=== PATIENT | female | born 1980 | race Caucasian/White ===

== ENCOUNTER 2025-02-20 12:35 | Emergency (ER) | payer BC, MEDICAID, SELFPAY ==
--- NOTE | ~2025-02-20 | CT_ITS ---
CLINICAL HISTORY: diffuse abd pain CT abdomen and pelvis with contrast Comparison: None provided Findings: The lung bases are clear. Fat containing umbilical hernia. Distended gallbladder. No hydronephrosis. No bowel obstruction, pneumoperitoneum, or pneumatosis. Left ovarian cysts measuring 2.3 cm. Bilateral pelvic varices can be seen with pelvic congestion syndrome. Retroverted uterus. Scattered colonic diverticulosis without diverticulitis or colitis. The bones are intact. IMPRESSION: No acute findings. This document has been electronically signed by: Solis Raymond MD on 02/20/2025 18:44:11
[2025-02-20 12:47] VITALS: BP 113/54; PULSE 51; RESP 18; TEMP 36.3; O2SAT 98; BMI 24.4
--- NOTE | 2025-02-20 12:47 | ED_ITS ---
HPI - General Adult General Chief complaint: Nausea/Vomiting/Diarrhea Stated complaint: Abd cramping, vomiting Time Seen by Provider: 02/20/25 14:21 Source: patient and family ( spouse) Mode of arrival: ambulatory Limitations: no limitations History of Present Illness ED Provider: DR. Swartz HPI narrative: this is a 44-year-old female otherwise healthy came in for evaluation of abdominal pain started about 6 hours ago while at work, pain described as constant cramps in the whole entire abdomen associated with loose stool bowel movement brown color, associated with nausea, vomiting, no dysuria, no frequency urination, patient started her menstrual cycle yesterday sometimes she gets menstrual cramps But her symptoms today is unusually severe than her menstrual cramps, no dysuria, no frequency urination, no fever, no other sick contacts, no recent travel, no recent use of antibiotic, no history of ingesting bad food or concern or food poisoning. no intra-abdominal surgical history, passing flatus is normal. Related Data Previous Rx's ?Medication ?Instructions ?Recorded doxycycline hyclate 100 mg tablet 100 mg PO BID #28 ta bs 05/03/20 Allergies Allergy/AdvReac Type Severity Reaction Status Date / Time sulfamethoxazole (From Allergy Intermediate RASH Verified 02/20/25 12:51 BACTRIM) trimethoprim (From BACTRIM) Allergy Intermediate RASH Verified 02/20/25 12:51 Review of Systems 2 Review of Systems: All other systems are reviewed and are negative Constitutional: Reports as per HPI and Reports no additional constitutional complaints Eyes: Reports as per HPI and Reports no additional eye complaints Reports system reviewed and no additional complaints, except as documented Cardiovascular: Reports as per HPI and Reports no additional cardiovascular complaints Respiratory: Reports as per HPI and Reports no additional respiratory complaints Gastrointestinal: Reports as per HPI and Reports no additional gastrointestinal complaints Genitourinary: Reports no additional female genitourinary complaints Musculoskeletal: Reports no additional musculoskeletal complaints Skin/Breast: Reports system reviewed and no additional complaints, except as docu Psychiatric: Reports no additional psychiatric complaints Endocrine: Reports no additional endocrine complaints Hematologic/Lymphatic: Reports no additional hematologic/lymphatic complaints Allergic/Immunologic: Reports no additional allergic/immunologic complaints Reports system reviewed and no additional complaints, except as documented and Reports Abnormal speech present PMFSH Social History Social History Smoked in Last 30 Days: No Use of substances other than those prescribed or required for medical reasons: Yes Substance Use Type: Marijuana Substance Use Frequency: Daily Last Used Substance: Days (ago) Advance Directives: No Advance Directives Information Provided: Yes Patient : No Physical Exam ED Vital Signs: Vital Signs - 24 hr 02/20/25 12:47 Temperature 97.4 F Pulse Rate 51 Respiratory Rate 18 Blood Pressure 113/54 L Pulse Oximetry 98 Oxygen Delivery Method Room Air BMI result Body Mass Index 24.4 Vital signs have been reviewed and appear to be correct. Blood pressure elevated. Heart rate normal. Respiratory rate normal. Temperature normal. Oxygen saturation normal. Appearance: Alert. Oriented X3. No acute distress. Head: Normal external exam. Normocephalic. Atraumatic. No [place] signs noted. No raccoon eyes noted Eyes: PERRLA. EOMI. Conjunctiva and sclera normal. Eyelids normal. ENT: TM's Normal. Pharynx normal. Uvula midline. Moist mucous membranes. No trismus noted. No drooling noted. No muffled voice noted. Neck: Normal inspection. Neck supple. FROM. No adenopathy. Thyroid Normal. No meningeal signs. No neck mass noted. CVS: Normal heart rate and rhythm. Heart sound normal. No murmurs noted. Pulses normal throughout. Respiratory: No respiratory distress. Painless inspiration. Breath sounds normal. No wheezes/rales/rhonchi noted. Chest nontender. No accessory muscle usage noted or decreased air movement noted. Abdomen: diffuse abdominal tenderness, no rebound tenderness, no guarding.Bowel sounds normal in all 4 quadrants. No distention noted. No organomegaly noted. No visible injury noted. Back: No CVA tenderness. Full range of motion noted. Skin: Skin warm and dry. Normal skin color. Normal skin turgor. No rashes/lesions/lacerations noted. Extremities: No lower extremity edema. Extremities exhibit normal range of motion. Extremities nontender. Neuro: Oriented X 3. Cranial nerve exam: II-XII are grossly intact No motor deficit. No sensory deficit. Reflexes normal. Course Course Course Narrative: This is an RME performed by Nabor Sanford CNP: Additional HPI, ROS, PE not included below will be deferred to primary provider. Patient is a female who presents emergency department for evaluation, reports Onset last night of menses and abdominal cramping, this morning had abrupt onset of nausea and persistent vomiting, diarrhea. Not able to tolerate oral intake. Endorsing chills but no fever. Plan: Serum labs, urinalysis Reevaluation(s) Reevaluation #1: 44-year-old female came in for diffuse abdominal pain, just started her menstruation yesterday, patient's symptoms can be mix of menstruation cramps and gastroenteritis. Patient feels better, able to tolerate p.o. intake, instructed to take ibuprofen for cramps, hydrate with oral fluids. Time: 19:09 Medications Administered Discontinued Medications Generic Name Dose Route Start Last Admin Trade Name Freq PRN Reason Stop Dose Admin Diazepam 2.5 mg 02/20/25 18:00 02/20/25 18:06 Diazepam 10 Mg/2 Ml Cartridge IVPUSH 02/20/25 18:01 2.5 mg STAT STA Administration Famotidine 20 mg 02/20/25 14:35 02/20/25 14:54 Famotidine/Pf 20 Mg/2 Ml Vial IVPUSH 02/20/25 14:36 20 mg ONCE ONE Administration Lactated Ringer's 1,000 mls @ 999 mls/hr 02/20/25 14:45 02/20/25 17:22 Lr IV 02/20/25 15:45 Infused .Q1H1M EYAD Infusion Iohexol 85 ml 02/20/25 18:17 02/20/25 18:22 Iohexol 350 Mg/Ml 100 Ml Infus..Btl IV 02/20/25 18:18 85 ml ONCE ONE Administration Ketorolac Tromethamine 15 mg 02/20/25 14:35 02/20/25 14:53 Ketorolac Tromethamine 15 Mg/Ml Vial IVPUSH 02/20/25 14:36 15 mg ONCE ONE Administration Metoclopramide HCl 10 mg 02/20/25 17:18 02/20/25 17:22 Metoclopramide Hcl 10 Mg/2 Ml Vial IVPUSH 02/20/25 17:19 10 mg ONCE ONE Administration Morphine Sulfate 1 mg 02/20/25 14:35 02/20/25 14:53 Morphine Sulfate 2 Mg/Ml Cartridge IVPUSH 02/20/25 14:36 1 mg ONCE ONE Administration Protocol Ondansetron HCl 4 mg 02/20/25 12:52 02/20/25 12:54 Ondansetron Odt 4 Mg Tab.Rapdis TRANSLINGU 02/20/25 12:53 4 mg ONCE ONE Administration Ondansetron HCl 4 mg 02/20/25 14:35 02/20/25 14:53 Ondansetron Hcl 4 Mg/2 Ml Vial IVPUSH 02/20/25 14:36 4 mg ONCE ONE Administration Medical Decision Making Differential Diagnosis Differential Diagnoses: The differential diagnosis associated with the presentation includes (Colitis, diverticulitis, acute cholecystitis, gastritis, gastroenteritis, PMS, UTI, .) Admission/Observation Consideration of admission/observation: Escalation of care including admission/observation considered Lab Data MDM Lab Attestation statement: I reviewed the patient's lab results. 02/20/25 13:09 02/20/25 13:09 Labs: Lab Results 02/20/25 02/20/25 Range/Units 13:09 13:18 WBC 12.9 H (4.8-10.8) X10*3/uL RBC 4.54 (4.20-5.50) X10*6/uL Hgb 13.5 (12.0-16.0) g/dl Hct 40.5 (37.0-47.0) % MCV 89.2 (80.0-98.0) fL MCH 29.7 (27.0-33.0) pg MCHC 33.3 (31.0-35.0) g/dl RDW 13.2 (11.0-16.0) % Plt Count 306 (160-400) X10*3/uL MPV 10.0 (9.4-12.3) fL Immature Gran % (Auto) 0.4 (0.0-0.4) % Neut % (Auto) 91.8 H (45-73) % Lymph % (Auto) 5.8 L (20-40) % [place] % (Auto) 1.6 L (2-11) % Eos % (Auto) 0.0 (0-4) % Baso % (Auto) 0.4 (0-2) % Lymph # (Auto) 0.8 L (1.2-4.9) X10*3/uL [place] # (Auto) 0.2 (0.1-1.2) X10*3/uL Eos # (Auto) 0.0 (0.0-0.4) X10*3/uL Baso # (Auto) 0.1 (0.0-0.2) X10*3/uL Abs Immat Gran (auto) 0.05 H (0.00-0.03) X10*3/uL Absolute Neuts (auto) 11.9 H (2.0-8.3) x10*3/uL Absolute Nucleated RBC 0.000 (0.0-0.012) X10*3/uL Nucleated RBC % (auto) 0.0 (0.0-0.2) /100WBC Smear Tech's Comments VERIFIED Sodium 143 (135-145) mmol/L Potassium 4.0 (3.3-5.1) mmol/L Chloride 112 H (96-108) mmol/L Carbon Dioxide 18 L (22-29) mmol/L Anion Gap 17 (12-20) BUN 8 L (9-16) mg/dL Creatinine 0.84 (0.5-1.4) mg/dL Estim Creat Clear Calc 74.5 Estimated GFR > 60 Random Glucose 150 H (60-115) mg/dL Calcium 9.6 (8.4-10.2) mg/dL Magnesium 2.0 (1.6-2.6) mg/dL Total Bilirubin 0.6 (0.0-1.0) mg/dL AST 24 (5-31) U/L ALT 22 (0-31) U/L Alkaline Phosphatase 61 (39-117) U/L Total Protein 8.1 H (6.5-8.0) g/dL Albumin 5.1 H (3.5-5.0) g/dL Lipase 13 (8-78) U/L Urine Color Dark Yellow Urine Appearance Cloudy Urine pH 5.5 (5.0-9.0) Ur Specific [place] >= 1.030 H (1.005-1.025) Urine Protein 30 (1+) H (Neg-Trace) mg/dL Urine Glucose (UA) Negative (Negative) mg/dL Urine Ketones 80 (Negative) mg/dL Urine Blood Large (3+) H (Negative) Urine Nitrite Negative (Negative) Ur Leukocyte Esterase Trace H (Negative) Urine RBC >20 H (0-2) /HPF Urine WBC 11-20 H (0-5) /HPF Ur Squamous Epith Cells 3-5 (0-2) /HPF Urine Bacteria Trace (None Seen) Hyaline Casts 3-5 (0-2) /LPF Urine Test NEGATIVE (NEGATIVE) Influenza Type A (PCR) NEGATIVE (Negative) Influenza Type B (PCR) NEGATIVE (Negative) RSV RNA Qual (PCR) NEGATIVE (Negative) SARS-CoV-2 RNA (RT-PCR) NEGATIVE (Negative) Independent Interpretation I performed an independent interpretation of an: CT Scan (Abdomen pelvis:The lung bases are clear. Fat containing umbilical hernia. Distended gallbladder. No hydronephrosis. No bowel obstruction, pneumoperitoneum, or pneumatosis. Left ovarian cysts measuring 2.3 cm. Bilateral pelvic varices can be seen with pelvic congestion syndrome. Retroverted uterus) Radiology Impression Discussion of test interpretation with radiology: I have reviewed the radiologist's reading. Discharge Plan Discharge Clinical Impression: Moderate cramps with menses, Gastroenteritis Patient Disposition: Home, Self-Care Instructions: Premenstrual Syndrome (ED), Gastroenteritis (ED) Additional Instructions: Drink plenty of fluids, take ibuprofen 200 mg orally every 6 hours if needed for pain. Prescriptions: No Action doxycycline hyclate 100 mg tablet 100 mg PO BID Qty: 28 0RF Stand Alone Forms: Work/School Release Print Language: Georgian
[2025-02-20 13:28] LABS: Hematocrit 40.5 % (37.0-47.0); Hemoglobin 13.5 g/dl (12.0-16.0); Imm Gran Abs Auto 0.05 X10*3/uL (0.00-0.03); Imm Gran Pct Auto 0.4 % (0.0-0.4); Lymphocytes Absolute Auto 0.8 X10*3/uL (1.2-4.9); MANUAL DIFF FLAG SCAN; Mean Corpuscular HGB Conc 33.3 g/dl (31.0-35.0); Mean Corpuscular Hemoglobin 29.7 pg (27.0-33.0); Mean Corpuscular Volume 89.2 fL (80.0-98.0); NRBC Abs Auto 0.000 X10*3/uL (0.0-0.012); NRBC Pct Auto 0.0 /100WBC (0.0-0.2); Platelet Count 306 X10*3/uL (160-400); Red Blood Count 4.54 X10*6/uL (4.20-5.50); SCAN SMEAR FLAG 1; White Blood Count 12.9 X10*3/uL (4.8-10.8)
[2025-02-20 13:29] LABS: UPreg QC Valid YES
[2025-02-20 13:31] LABS: Appearance Urine Cloudy; Glucose Urine UA Negative (Negative); PH 5.5 (5.0-9.0); Specific Gravity - Urine >= 1.030 (1.005-1.025); UMIC TRIGGER UACC YES
[2025-02-20 13:35] LABS: UACC Culture Trigger YES
[2025-02-20 13:40] LABS: Alanine Aminotransferase 22 U/L (0-31); Albumin Level 5.1 g/dL (3.5-5.0); Alkaline Phosphatase 61 U/L (39-117); Anion Gap 17 (12-20); Aspartate Amino Transferase 24 U/L (5-31); Blood Urea Nitrogen 8 mg/dL (9-16); Calcium 9.6 mg/dL (8.4-10.2); Carbon Dioxide 18 mmol/L (22-29); Chloride 112 mmol/L (96-108); Creatinine Clr Calc Pharmacy 74.5; Estimated Glomerular Filt Rate > 60; Lipase 13 U/L (8-78); Magnesium 2.0 mg/dL (1.6-2.6); Potassium 4.0 mmol/L (3.3-5.1); Sodium 143 mmol/L (135-145); Total Protein 8.1 g/dL (6.5-8.0)
[2025-02-20 14:42] LABS: Resp Syncy Virus RNA Qual PCR NEGATIVE (Negative); SARS COV2 PCR INHOUSE NEGATIVE (Negative)
[2025-02-20] MEDS: Lactated Ringers 1,000 ML 999 ML IV (14:53)
[2025-02-20] MEDS: diazePAM 10 MG/2 ML CARTRIDGE 2.5 MG IVPUSH (18:06)
--- NOTE | 2025-02-20 18:08 | PC.NURSE ---
Pt reports significant anxiety. ED provider made aware and new orders placed. Pt medicated per SEP.
[2025-02-20] MEDS: iohexoL 350 MG/ML 100 ML INFUS..BTL 85 ML IV (18:22)
[2025-02-20 19:36] VITALS: BP 91/54; PULSE 70; RESP 20; TEMP 36.8; O2SAT 97
[2025-02-20 20:01] VITALS: BP 91/54; PULSE 70; RESP 20; TEMP 36.8; O2SAT 97
== END 2025-02-20 20:01 | disposition home or self-care (01) ==
PROVIDERS: Nurse Practitioner Family; Emergency Provider Emergency Medicine
DX: N94.6 Dysmenorrhea, unspecified (principal); K52.9 Noninfective gastroenteritis and colitis, unspecified; R11.2 Nausea with vomiting, unspecified; Z03.818 Encounter for observation for suspected exposure to other biological agents ruled out; Z79.899 Other long term (current) drug therapy
CPT/HCPCS: 36415; 74177; 80053; 81001; 81025; 83690; 83735; 85025; 87086; 87637; 96361; 96374; 96375; 99284; 99285; J1308; J1885; J2270; J2405; J2765; J3360; J7120; Q9967

== ENCOUNTER → 2025-02-20 15:53 | Outpatient (BNV) | payer BC, MEDICAID, SELFPAY | PROVIDERS: Emergency Provider Emergency Medicine; Visit Provider Radiology Diagnostic Radiology | DX: N83.202 Unspecified ovarian cyst, left side (principal) | CPT/HCPCS: 74177 ==

== ENCOUNTER 2025-02-21 19:39 | Emergency (ER) | payer BC, MEDICAID, SELFPAY ==
[2025-02-21 19:50] VITALS: BP 108/71; BP 122/46; PULSE 22; PULSE 64; RESP 20; TEMP 36.7; O2SAT 98; BMI 25.2
[2025-02-21 20:06] VITALS: BP 111/68; PULSE 66; RESP 11; TEMP 36.6; O2SAT 96
[2025-02-21 20:55] LABS: MANUAL DIFF FLAG NO
[2025-02-21 20:56] LABS: Hematocrit 33.4 % (37.0-47.0); Hemoglobin 11.8 g/dl (12.0-16.0); Imm Gran Abs Auto 0.07 X10*3/uL (0.00-0.03); Imm Gran Pct Auto 0.5 % (0.0-0.4); Lymphocytes Absolute Auto 1.1 X10*3/uL (1.2-4.9); Mean Corpuscular HGB Conc 35.3 g/dl (31.0-35.0); Mean Corpuscular Hemoglobin 30.3 pg (27.0-33.0); Mean Corpuscular Volume 85.9 fL (80.0-98.0); NRBC Abs Auto 0.000 X10*3/uL (0.0-0.012); NRBC Pct Auto 0.0 /100WBC (0.0-0.2); Platelet Count 272 X10*3/uL (160-400); Red Blood Count 3.89 X10*6/uL (4.20-5.50); White Blood Count 14.8 X10*3/uL (4.8-10.8)
[2025-02-21 21:16] LABS: Alanine Aminotransferase 20 U/L (0-31); Albumin Level 4.6 g/dL (3.5-5.0); Alkaline Phosphatase 50 U/L (39-117); Anion Gap 18 (12-20); Aspartate Amino Transferase 25 U/L (5-31); Blood Urea Nitrogen 17 mg/dL (9-16); Calcium 9.1 mg/dL (8.4-10.2); Carbon Dioxide 18 mmol/L (22-29); Chloride 111 mmol/L (96-108); Creatinine Clr Calc Pharmacy 90.8; Estimated Glomerular Filt Rate > 60; Potassium 3.2 mmol/L (3.3-5.1); Sodium 144 mmol/L (135-145); Total Protein 7.0 g/dL (6.5-8.0)
[2025-02-21 22:34] VITALS: BP 133/70; PULSE 63; RESP 18; O2SAT 98
[2025-02-21 23:01] VITALS: TEMP 37.7
[2025-02-21] MEDS: Sucralfate Oral Suspension 1 GM/10 ML ORAL.SUSP PO (23:39)
[2025-02-22] MEDS: Potassium Chloride ER 20 MEQ TAB.ER.PRT 40 MEQ PO (02:11)
--- NOTE | 2025-02-22 03:07 | ED_ITS ---
HPI - General Adult General Chief complaint: Abdominal Pain Stated complaint: abd pain, N/V x36 hrs Time Seen by Provider: 02/21/25 22:36 Source: patient Limitations: no limitations History of Present Illness ED Provider: Radha Samson PA-C HPI narrative: 44-year-old female presents with abdominal pain and intractable nausea vomiting. Patient was seen earlier today, found to have viral gastroenteritis, her CT scan of the abdomen and pelvis was negative. She returns to the emergency department secondary to extreme dyspepsia and upper abdominal discomfort. She states she is having ?coffee-ground emesis with obvious blood in her vomit?. Denies fever. Related Data Previous Rx's ?Medication ?Instructions ?Recorded doxycycline hyclate 100 mg tablet 100 mg PO BID #28 ta bs 05/03/20 ondansetron 4 mg disintegrating 4 mg PO Q8-12H PRN enriqueta sea and 02/20/25 tablet vomiting #5 tabs dicyclomine 20 mg tablet 20 mg PO QID PRN abdominal p ain 02/22/25 #16 tabs sucralfate 100 mg/mL oral 10 ml PO QID PRN dyspepsia # 300 mL 02/22/25 suspension (Carafate) Allergies Allergy/AdvReac Type Severity Reaction Status Date / Time sulfamethoxazole (From Allergy Intermediate RASH Verified 02/21/25 19:54 BACTRIM) trimethoprim (From BACTRIM) Allergy Intermediate RASH Verified 02/21/25 19:54 Review of Systems 2 Review of Systems: Yes all other systems are reviewed and are negative Constitutional: Constitutional: Denies fatigue, Denies fever(s) and Reports malaise Cardiovascular: Cardiovascular: Denies chest pain and Denies dyspnea Respiratory: Respiratory: Denies dyspnea Gastrointestinal: Gastrointestinal: Reports abdominal pain, Reports dyspepsia, Reports nausea and Reports vomiting Endocrine: Endocrine: Denies fatigue PMFSH Past Medical History Attestation statement: The following information was validated with the patient. Social History Social History Smoked in Last 30 Days: No Use of substances other than those prescribed or required for medical reasons: Yes Substance Use Type: Marijuana Substance Use Frequency: Daily Advance Directives: No Advance Directives Information Provided: Yes Do you have a plan to hurt others: No Plan Physical Exam ED Vital Signs: Vital Signs - 24 hr 02/21/25 19:50 02/21/25 20:06 02/21/25 22:34 Temperature 98.0 F 97.8 F Pulse Rate 22 L 66 63 Respiratory Rate 20 11 L 18 Blood Pressure 122/46 L 111/68 133/70 Pulse Oximetry 98 96 98 Oxygen Delivery Method Room Air Room Air Room Air 02/21/25 23:01 Temperature 99.9 F Pulse Rate Respiratory Rate Blood Pressure Pulse Oximetry Oxygen Delivery Method BMI result Body Mass Index 25.2 Const Other: Alert, ill-appearing, actively vomiting Orientation/consciousness: patient oriented x3 Resp Effort & Inspection: normal respiratory effort Cardio Other: Normal peripheral perfusion Skin Other: Warm dry no rash Neuro General: patient oriented x3, gait normal, no focal motor deficits and CN's II- XI intact bilaterally Psych Other: Cooperative Medications Administered Discontinued Medications Generic Name Dose Route Start Last Admin Trade Name Freq PRN Reason Stop Dose Admin Droperidol 2.5 mg 02/21/25 22:49 02/21/25 22:54 Droperidol 5 Mg/2 Ml Vial IVPUSH 02/21/25 22:50 2.5 mg ONCE ONE Administration Famotidine 20 mg 02/21/25 22:49 02/21/25 22:55 Famotidine/Pf 20 Mg/2 Ml Vial IVPUSH 02/21/25 22:50 20 mg ONCE ONE Administration Potassium Chloride 40 meq 02/22/25 00:06 02/22/25 02:11 Potassium Chloride Er 20 Meq Tab.Er.Prt PO 02/22/25 00:07 40 meq ONCE ONE Administration Sucralfate 1 gm 02/21/25 22:49 02/21/25 23:39 Sucralfate Oral Suspension 1 Gm/10 Ml Oral.Susp PO 02/21/25 22:50 1 gm ONCE ONE Administration Medical Decision Making Medical Decision Making MDM Narrative: 44-year-old female presents with abdominal pain and intractable nausea vomiting. Patient was seen earlier today, found to have viral gastroenteritis, her CT scan of the abdomen and pelvis was negative. She returns to the emergency department secondary to extreme dyspepsia and upper abdominal discomfort. She states she is having ?coffee-ground emesis with obvious blood in her vomit?. Denies fever. Problem: Known viral gastroenteritis History: Per patient I have considered the following differential diagnoses: Refractory symptoms Plan: There was report that the patient was vomiting coffee-ground emesis, I have yet to see it, we will be giving fluid, droperidol, famotidine and Carafate. Her potassium was subtly low we will give once she can tolerate oral intake. I have independently reviewed the following tests: Labs: Slight leukocytosis, left shift, not anemic, no electrolyte abnormality other than subtly low potassium, not , urine not infected, CT abdomen and pelvis: From earlier MPRESSION: No acute findings. Lab Data 02/21/25 20:50 02/21/25 20:50 Labs: Lab Results 02/21/25 Range/Units 20:50 WBC 14.8 H (4.8-10.8) X10*3/uL RBC 3.89 L (4.20-5.50) X10*6/uL Hgb 11.8 L (12.0-16.0) g/dl Hct 33.4 L (37.0-47.0) % MCV 85.9 (80.0-98.0) fL MCH 30.3 (27.0-33.0) pg MCHC 35.3 H (31.0-35.0) g/dl RDW 13.2 (11.0-16.0) % Plt Count 272 (160-400) X10*3/uL MPV 9.8 (9.4-12.3) fL Immature Gran % (Auto) 0.5 H (0.0-0.4) % Neut % (Auto) 86.7 H (45-73) % Lymph % (Auto) 7.5 L (20-40) % [place] % (Auto) 4.9 (2-11) % Eos % (Auto) 0.1 (0-4) % Baso % (Auto) 0.3 (0-2) % Lymph # (Auto) 1.1 L (1.2-4.9) X10*3/uL [place] # (Auto) 0.7 (0.1-1.2) X10*3/uL Eos # (Auto) 0.0 (0.0-0.4) X10*3/uL Baso # (Auto) 0.0 (0.0-0.2) X10*3/uL Abs Immat Gran (auto) 0.07 H (0.00-0.03) X10*3/uL Absolute Neuts (auto) 12.9 H (2.0-8.3) x10*3/uL Absolute Nucleated RBC 0.000 (0.0-0.012) X10*3/uL Nucleated RBC % (auto) 0.0 (0.0-0.2) /100WBC Sodium 144 (135-145) mmol/L Potassium 3.2 L (3.3-5.1) mmol/L Chloride 111 H (96-108) mmol/L Carbon Dioxide 18 L (22-29) mmol/L Anion Gap 18 (12-20) BUN 17 H (9-16) mg/dL Creatinine 0.75 (0.5-1.4) mg/dL Estim Creat Clear Calc 90.8 Estimated GFR > 60 Fasting Glucose 97 (60-99) mg/dL Calcium 9.1 (8.4-10.2) mg/dL Total Bilirubin 0.7 (0.0-1.0) mg/dL AST 25 (5-31) U/L ALT 20 (0-31) U/L Alkaline Phosphatase 50 (39-117) U/L Total Protein 7.0 (6.5-8.0) g/dL Albumin 4.6 (3.5-5.0) g/dL Beta HCG, Quant < 2 mIU/mL Discharge Plan Discharge Clinical Impression: Viral gastroenteritis Patient Disposition: Home, Self-Care Instructions: Gastroenteritis (ED) Additional Instructions: You are being treated for viral gastroenteritis. Viral illnesses self-limiting. Uses Zofran as needed for nausea, use the dicyclomine as needed for abdominal pain and diarrhea. Use the Carafate as needed for dyspepsia/GERD symptoms. Follow up with your primary care provider as needed. Prescriptions: New sucralfate [Carafate] 100 mg/mL suspension 10 ml PO QID PRN (Reason: dyspepsia) Qty: 300 0RF Rx Instructions: swish in mouth and swallow; use after food/drink dicyclomine 20 mg tablet 20 mg PO QID PRN (Reason: abdominal pain) Qty: 16 0RF No Action ondansetron 4 mg tablet,disintegrating 4 mg PO Q8-12H PRN (Reason: nausea and vomiting) Qty: 5 0RF doxycycline hyclate 100 mg tablet 100 mg PO BID Qty: 28 0RF Stand Alone Forms: Work/School Release Print Language: Indonesian
[2025-02-22 03:39] VITALS: BP 133/70; PULSE 63; RESP 12; TEMP 37.1; O2SAT 98
== END 2025-02-22 03:40 | disposition home or self-care (01) ==
PROVIDERS: Emergency Provider Emergency Medicine
DX: A08.4 Viral intestinal infection, unspecified (principal); R10.9 Unspecified abdominal pain; R11.2 Nausea with vomiting, unspecified
CPT/HCPCS: 36415; 80053; 84702; 85025; 96374; 96375; 99284; J1308; J1790